=== PATIENT | male | born 1985 | race Caucasian/White ===

== ENCOUNTER 2017-03-20 22:12 | Emergency (ER) | payer OTHER ==
[~2017-03-20] VITALS: Ht 177.8 cm; Wt 72.6 kg
[2017-03-20 22:45] VITALS: BP_SYST 119
--- NOTE | 2017-03-20 23:00 | NUR ---
Patient to ER bed 8 to gown for evaluation. Side rails up. Report given to SHANIKA VALDEZ.
--- NOTE | 2017-03-20 23:00 | NUR ---
DAVIE Howell at bedside examining patient.
--- NOTE | 2017-03-20 23:05 | NUR ---
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 Patient brought small hypodermic needle with cap. Stick was to right thumb. No acute distress noted. Will continue to monitor.
[2017-03-20 23:45] VITALS: BP_SYST 120
--- NOTE | 2017-03-20 23:45 | NUR ---
Patient given written and verbal discharge instructions and verbalizes understanding. ER MD Dr. Guadarrama discussed with patient the results and treatment provided. Patient in stable condition. ID arm band removed. No Rx given. Patient educated on pain management and to follow up with PMD. Pain Scale 0/10 . Opportunity for questions provided and answered.
[2017-03-22 15:13] LABS: HEPATITIS A AB, IgM Negative (Negative); HEPATITIS B CORE AB, IgM Negative (Negative); HEPATITIS B SURFACE AG Negative (Negative)
== END 2017-03-20 23:45 | disposition home or self-care (01) ==
LOC: SED 22:12
DX: S61.031A Puncture wound without foreign body of right thumb without damage to nail, initial encounter (principal); W46.0XXA Contact with hypodermic needle, initial encounter; Y93.E9 Activity, other interior property and clothing maintenance; Y92.89 Other specified places as the place of occurrence of the external cause; Y99.8 Other external cause status
CPT/HCPCS: 36415; 80074; 86592; 99284